=== PATIENT | female | born 2000 ===

== ENCOUNTER 2023-09-01 13:32 | Outpatient (CLI) | payer BC, SELFPAY | END 2023-09-01 13:33 | disposition home or self-care (01) | LOC: NFLDREF 09-04 13:56 | PROVIDERS: PCP Emergency Medicine; Referring Provider Emergency Medicine; Visit Provider Physician Assistant | DX: N89.8 Other specified noninflammatory disorders of vagina (principal); N39.0 Urinary tract infection, site not specified; N76.0 Acute vaginitis; Z11.3 Encounter for screening for infections with a predominantly sexual mode of transmission | CPT/HCPCS: 87086; 87491; 87591 ==

== ENCOUNTER 2025-01-19 16:17 | Outpatient (CLI) | payer BC, SELFPAY | END 2025-01-19 16:18 | disposition home or self-care (01) | PROVIDERS: Visit Provider Physician Assistant Medical | DX: Z00.00 Encounter for general adult medical examination without abnormal findings (principal); F41.9 Anxiety disorder, unspecified | CPT/HCPCS: 80053; 80061; 82306; 84443 ==